=== PATIENT | female | born 1975 | race Caucasian/White ===

== ENCOUNTER 2017-07-22 15:01 | Emergency (ER) | payer MEDICAID ==
[~2017-07-22] VITALS: Ht 165.1 cm; Wt 71.7 kg
[2017-07-22 15:05] VITALS: BP_SYST 106
[2017-07-22] MEDS ORDERED: KETOROLAC TROMETHAMINE 60 MG/2 ML VIAL IM ONE (15:30)
[2017-07-22] MEDS ORDERED: HYDROcodone/ACETAMIN 7.5-325 MG TAB PO ONE (15:30)
[2017-07-22 15:33] LABS: BILIRUBIN,URINE NEGATIVE (NEGATIVE); BLOOD, URINE 3+ (NEGATIVE); CLARITY/URINE CLEAR (CLEAR); COLOR,URINE YELLOW (YELLOW); GLUCOSE,URINE NEGATIVE (NEGATIVE); KETONES,URINE NEGATIVE (NEGATIVE); LEUKOCYTE ESTERASE ,URINE NEGATIVE (NEGATIVE); NITRITE, URINE NEGATIVE (NEGATIVE); PROTEIN URINE NEGATIVE (NEGATIVE); UROBILINOGEN,URINE 0.2 (0.2-1.0)
[2017-07-22 15:48] LABS: BACTERIA,URINE FEW /HPF (None Seen); MUCUS,URINE 1+ /LPF (None Seen); WBC,URINE 0-3 /HPF (0-3)
[2017-07-22 17:55] VITALS: BP_SYST 110
== END 2017-07-22 17:55 | disposition home or self-care (01) ==
LOC: SED 15:01
DX: S39.012A Strain of muscle, fascia and tendon of lower back, initial encounter (principal); S16.1XXA Strain of muscle, fascia and tendon at neck level, initial encounter; R03.0 Elevated blood-pressure reading, without diagnosis of hypertension; W07.XXXA Fall from chair, initial encounter; Y93.89 Activity, other specified; Y92.89 Other specified places as the place of occurrence of the external cause; Y99.8 Other external cause status
CPT/HCPCS: 72125; 72131; 81000; 81025; 96372; 99285; J1885

== ENCOUNTER 2017-12-08 22:20 | Emergency (ER) | payer MEDICAID ==
[~2017-12-08] VITALS: Ht 162.6 cm; Wt 72.6 kg
[2017-12-08 22:25] VITALS: BP_SYST 97
[2017-12-08 23:15] LABS: BILIRUBIN,URINE NEGATIVE (NEGATIVE); BLOOD, URINE 3+ (NEGATIVE); CLARITY/URINE HAZY (CLEAR); COLOR,URINE YELLOW (YELLOW); GLUCOSE,URINE NEGATIVE (NEGATIVE); KETONES,URINE NEGATIVE (NEGATIVE); LEUKOCYTE ESTERASE ,URINE 1+ (NEGATIVE); NITRITE, URINE POSITIVE (NEGATIVE); PROTEIN URINE 2+ (NEGATIVE); UROBILINOGEN,URINE 0.2 (0.2-1.0)
[2017-12-08 23:23] LABS: BASOPHILS % (AUTO) 0.6 % (0.0-2.0); EOSINOPHILS # (AUTO) 0.1 K/uL (0.0-0.4); EOSINOPHILS % (AUTO) 1.3 % (0.0-4.0); HEMATOCRIT 32.4 % (36-48); HEMOGLOBIN 10.9 g/dL (12.0-16.0); LYMPHOCYTES # (AUTO) 1.6 K/uL (1.0-5.5); LYMPHOCYTES % (AUTO) 20.2 % (20.5-51.5); MEAN CORPUSCULAR HEMOGLOBIN 30 pg (27-31); MEAN CORPUSCULAR HGB CONC 34 % (32-36); MEAN CORPUSCULAR VOLUME 87 fL (79.0-98.0); MONOCYTES # (AUTO) 0.6 K/uL (0.0-1.0); MONOCYTES % (AUTO) 7.5 % (1.7-9.3); NEUTROPHILS # (AUTO) 5.8 K/uL (1.8-7.7); NEUTROPHILS % (AUTO) 70.4 % (40.0-70.0); PLATELET COUNT (AUTO) 256 K/uL (130-430); RED BLOOD CELL COUNT(AUTO) 3.71 MIL/uL (4.2-6.2); RED CELL DISTRIBUTION WIDTH 13.4 % (9.0-15.0); WHITE BLOOD COUNT (AUTO) 8.1 K/uL (4.8-10.8)
[2017-12-08 23:32] LABS: CALCIUM 8.2 mg/dL (8.4-11.0); CREATININE 0.76 mg/dL (0.55-1.30); POTASSIUM 3.4 mmol/L (3.5-5.1)
[2017-12-08 23:37] LABS: ALBUMIN 3.2 g/dL (3.4-4.8); TOTAL BILIRUBIN 0.2 mg/dL (0.0-1.0)
[2017-12-08 23:45] LABS: BACTERIA,URINE MANY /HPF (None Seen); MUCUS,URINE 1+ /LPF (None Seen); RBC,URINE 20-50 /HPF (0-3)
[2017-12-09 00:30] VITALS: BP_SYST 120
== END 2017-12-09 00:30 | disposition home or self-care (01) ==
LOC: SED 22:20
DX: N39.0 Urinary tract infection, site not specified (principal)
CPT/HCPCS: 36415; 76830-TC; 76857; 80053; 81000-TC; 85025; 87086; 87186-TC; 99285

== ENCOUNTER 2018-02-15 10:13 | Outpatient (CLI) | payer MEDICAID | END 2018-02-15 21:13 | disposition home or self-care (01) | LOC: SMA 10:13 | DX: Z12.31 Encounter for screening mammogram for malignant neoplasm of breast (principal) | CPT/HCPCS: 77067 ==

== ENCOUNTER 2018-02-22 20:35 | Emergency (ER) | payer MEDICAID ==
[~2018-02-22] VITALS: Ht 172.7 cm; Wt 71.7 kg
--- NOTE | 2018-02-22 20:40 | NUR ---
Patient to ER bed 6 to gown for evaluation. Side rails up. Report given to Pili KHANNA.
[2018-02-22 20:42] VITALS: BP_SYST 113
--- NOTE | 2018-02-22 20:42 | NUR ---
ED MD [place] at bedside for medical evaluation.
[2018-02-22] MEDS ORDERED: FIORCET PO ONE (20:45)
--- NOTE | 2018-02-22 20:50 | NUR ---
Patient complaining of headache, sinus pressure and jaw pain since Monday. Denies any N/V/D, light sensitivity, blurred vision or dizziness. Pain 7/10, pressure. No other complaints/injuries per patient or as noted. Will continue to monitor.
[2018-02-22 21:15] VITALS: BP_SYST 113
--- NOTE | 2018-02-22 21:15 | NUR ---
Patient given written and verbal discharge instructions and verbalizes understanding. ER MD discussed with patient the results and treatment provided. Patient in stable condition. ID arm band removed. IV catheter removed intact and dressing applied, no active bleeding. Rx of Fioricet and Zyrtec given. Patient educated on pain management and to follow up with PMD in 2-3 days. Pain Scale 2/10 Opportunity for questions provided and answered. Medication side effect fact sheet provided.
== END 2018-02-22 21:15 | disposition home or self-care (01) ==
LOC: SED 20:35
DX: R51 Headache (principal)
CPT/HCPCS: 81025; 99283

== ENCOUNTER 2018-07-04 16:06 | Emergency (ER) | payer MEDICAID ==
[~2018-07-04] VITALS: Ht 167.6 cm; Wt 72.6 kg
[2018-07-04 16:06] VITALS: BP_SYST 134
[2018-07-04] MEDS ORDERED: KETOROLAC TROMETHAMINE 60 MG/2 ML VIAL IM ONE (16:45)
[2018-07-04 17:17] LABS: HEMATOCRIT 32.2 % (36-48); HEMOGLOBIN 10.6 g/dL (12.0-16.0); MEAN CORPUSCULAR HEMOGLOBIN 27 pg (27-31); MEAN CORPUSCULAR HGB CONC 33 % (32-36); MEAN CORPUSCULAR VOLUME 83 fL (79.0-98.0); PLATELET COUNT (AUTO) 281 K/uL (130-430); RED BLOOD CELL COUNT(AUTO) 3.88 MIL/uL (4.2-6.2); RED CELL DISTRIBUTION WIDTH 13.7 % (9.0-15.0); WHITE BLOOD COUNT (AUTO) 7.2 K/uL (4.8-10.8)
[2018-07-04 17:18] LABS: BASOPHILS % (AUTO) 0.5 % (0.0-2.0); EOSINOPHILS # (AUTO) 0.1 K/uL (0.0-0.4); LYMPHOCYTES # (AUTO) 1.8 K/uL (1.0-5.5); LYMPHOCYTES % (AUTO) 24.8 % (20.5-51.5); MONOCYTES # (AUTO) 0.5 K/uL (0.0-1.0); MONOCYTES % (AUTO) 7.2 % (1.7-9.3); NEUTROPHILS # (AUTO) 4.8 K/uL (1.8-7.7); NEUTROPHILS % (AUTO) 66.5 % (40.0-70.0)
[2018-07-04 17:21] LABS: POTASSIUM 4.2 mmol/L (3.5-5.1)
[2018-07-04 17:23] LABS: ALBUMIN 3.5 g/dL (3.4-4.8); CREATININE 0.7 mg/dL (0.55-1.30); TOTAL BILIRUBIN 0.1 mg/dL (0.0-1.0)
[2018-07-04 18:10] VITALS: BP_SYST 101
== END 2018-07-04 18:10 | disposition home or self-care (01) ==
LOC: SED 16:06
DX: S16.1XXA Strain of muscle, fascia and tendon at neck level, initial encounter (principal); S46.912A Strain of unspecified muscle, fascia and tendon at shoulder and upper arm level, left arm, initial encounter; R51 Headache; R03.0 Elevated blood-pressure reading, without diagnosis of hypertension; K21.9 Gastro-esophageal reflux disease without esophagitis; X58.XXXA Exposure to other specified factors, initial encounter; Y93.89 Activity, other specified; Y92.89 Other specified places as the place of occurrence of the external cause; Y99.8 Other external cause status
CPT/HCPCS: 36415; 70450; 80053; 81025; 85025; 96372; 99284; J1885

== ENCOUNTER 2019-03-30 11:24 | Emergency (ER) | payer MEDICAID ==
[~2019-03-30] VITALS: Ht 172.7 cm; Wt 68.0 kg
[2019-03-30 11:32] VITALS: BP_SYST 100
[2019-03-30] MEDS ORDERED: ONDANSETRON HCL 4 MG/2 ML VIAL IVP ONE (12:00)
[2019-03-30] MEDS ORDERED: KETOROLAC TROMETHAMINE 30 MG VIAL IVP ONE (12:00)
[2019-03-30] MEDS ORDERED: NACL 0.9% 1,000 ML IV ONE (12:00)
[2019-03-30 12:21] LABS: BASOPHILS % (AUTO) 0.3 % (0.0-2.0); EOSINOPHILS % (AUTO) 0.4 % (0.0-4.0); HEMOGLOBIN 10.1 g/dL (12.0-16.0); LYMPHOCYTES # (AUTO) 0.4 K/uL (1.0-5.5); LYMPHOCYTES % (AUTO) 4.9 % (20.5-51.5); MEAN CORPUSCULAR HEMOGLOBIN 25 pg (27-31); MEAN CORPUSCULAR HGB CONC 33 % (32-36); MEAN CORPUSCULAR VOLUME 77 fL (79.0-98.0); MONOCYTES # (AUTO) 0.3 K/uL (0.0-1.0); MONOCYTES % (AUTO) 3.7 % (1.7-9.3); NEUTROPHILS # (AUTO) 8.2 K/uL (1.8-7.7); NEUTROPHILS % (AUTO) 90.7 % (40.0-70.0); PLATELET COUNT (AUTO) 202 K/uL (130-430); RED BLOOD CELL COUNT(AUTO) 4.01 MIL/uL (4.2-6.2); RED CELL DISTRIBUTION WIDTH 15.4 % (9.0-15.0)
[2019-03-30 12:35] LABS: CALCIUM 8.2 mg/dL (8.4-11.0); CREATININE 0.69 mg/dL (0.55-1.30); POTASSIUM 3.8 mmol/L (3.5-5.1)
[2019-03-30 12:41] LABS: ALBUMIN 3.1 g/dL (3.4-4.8); TOTAL BILIRUBIN 0.5 mg/dL (0.0-1.0)
[2019-03-30 13:21] VITALS: BP_SYST 16
== END 2019-03-30 13:21 | disposition home or self-care (01) ==
LOC: SED 11:24
DX: T62.8X1A Toxic effect of other specified noxious substances eaten as food, accidental (unintentional), initial encounter (principal); R11.2 Nausea with vomiting, unspecified; K21.9 Gastro-esophageal reflux disease without esophagitis; Y92.89 Other specified places as the place of occurrence of the external cause
CPT/HCPCS: 36415; 80053; 81025; 83690; 85025; 96361; 96374; 96375; 99283; J1885; J2405; J7030

== ENCOUNTER 2019-05-09 07:02 | Emergency (ER) | payer MEDICAID ==
[~2019-05-09] VITALS: Ht 165.1 cm; Wt 68.0 kg
[2019-05-09 07:05] VITALS: BP_SYST 86
--- NOTE | 2019-05-09 07:05 | NUR ---
BROUGHT BACK TO BED #7 AND TRIAGED. REPORT GIVEN TO SIGIFREDO
--- NOTE | 2019-05-09 07:18 | NUR ---
pt arrives from home w/ c/o VILLALOBOS and back pain 03/05. Pt is currently afebrile. No other c/o at the moment. Will continue to monitor.
--- NOTE | 2019-05-09 07:25 | NUR ---
# 22 gauge angiocath placed to left hand. Use of asceptic technique. Opsite placed over site. Blood return noted. Blood for lab drawn from site. Flushed with 10 cc of normal saline. No evidence of infiltration noted. Patient tolerated well.
--- NOTE | 2019-05-09 07:32 | NUR ---
ER at bedside examining patient.
[2019-05-09] MEDS ORDERED: PROCHLORPERAZINE EDISYLATE 10 MG/2 ML VIAL IVP ONE (08:00)
[2019-05-09] MEDS ORDERED: KETOROLAC TROMETHAMINE 30 MG VIAL IVP ONE (08:00)
--- NOTE | 2019-05-09 08:05 | NUR ---
Meicated the pt w/ Toradol and Compazine per MD order. Will reassess.
[2019-05-09 08:11] LABS: BASOPHILS % (AUTO) 0.5 % (0.0-2.0); EOSINOPHILS % (AUTO) 0.1 % (0.0-4.0); HEMATOCRIT 32.8 % (36-48); HEMOGLOBIN 10.8 g/dL (12.0-16.0); LYMPHOCYTES # (AUTO) 0.3 K/uL (1.0-5.5); LYMPHOCYTES % (AUTO) 3.7 % (20.5-51.5); MEAN CORPUSCULAR HEMOGLOBIN 25 pg (27-31); MEAN CORPUSCULAR HGB CONC 33 % (32-36); MEAN CORPUSCULAR VOLUME 76 fL (79.0-98.0); MONOCYTES # (AUTO) 0.5 K/uL (0.0-1.0); MONOCYTES % (AUTO) 8.1 % (1.7-9.3); NEUTROPHILS # (AUTO) 5.9 K/uL (1.8-7.7); NEUTROPHILS % (AUTO) 87.6 % (40.0-70.0); PLATELET COUNT (AUTO) 206 K/uL (130-430); RED BLOOD CELL COUNT(AUTO) 4.31 MIL/uL (4.2-6.2); RED CELL DISTRIBUTION WIDTH 16.8 % (9.0-15.0); WHITE BLOOD COUNT (AUTO) 6.7 K/uL (4.8-10.8)
[2019-05-09 08:43] LABS: CALCIUM 8.5 mg/dL (8.4-11.0); CREATININE 0.92 mg/dL (0.55-1.30); POTASSIUM 3.9 mmol/L (3.5-5.1)
[2019-05-09 08:49] LABS: TOTAL BILIRUBIN 0.2 mg/dL (0.0-1.0)
--- NOTE | 2019-05-09 08:53 | NUR ---
pt reports feeling better. Will reassess.
[2019-05-09 09:22] VITALS: BP_SYST 86
--- NOTE | 2019-05-09 09:23 | NUR ---
Patient given written and verbal discharge instructions and verbalizes understanding. ER MD discussed with patient the results and treatment provided. Patient in stable condition. ID arm band removed. IV catheter removed intact and dressing applied, no active bleeding.Rx of Naproxen and Klonopin given. Patient educated on pain management and to follow up with PMD. Pain Scale 3/10.Opportunity for questions provided and answered. Medication side effect fact sheet provided.
== END 2019-05-09 09:23 | disposition home or self-care (01) ==
LOC: SED 07:02
DX: G44.209 Tension-type headache, unspecified, not intractable (principal); K21.9 Gastro-esophageal reflux disease without esophagitis
CPT/HCPCS: 36415; 80053; 85025; 96374; 96375; 99283; J0780; J1885

== ENCOUNTER 2020-11-08 08:44 | Emergency (ER) | payer MEDICAID ==
[~2020-11-08] VITALS: Ht 165.1 cm; Wt 76.7 kg
[2020-11-08 09:02] VITALS: BP_SYST 118
[2020-11-08] MEDS ORDERED: HYDROcodone/ACETAMIN 10-325 MG TAB PO ONE (09:30)
[2020-11-08] MEDS ORDERED: KETOROLAC TROMETHAMINE 60 MG/2 ML VIAL IM ONE (09:30)
[2020-11-08] MEDS ORDERED: TRAM50TA2 PO (10:28)
[2020-11-08 10:41] VITALS: BP_SYST 121
== END 2020-11-08 10:41 | disposition home or self-care (01) ==
LOC: SED 08:44
DX: G89.29 Other chronic pain (principal); M25.512 Pain in left shoulder; K21.9 Gastro-esophageal reflux disease without esophagitis
CPT/HCPCS: 73030; 96372; 99283; J1885

== ENCOUNTER 2021-05-05 16:36 | Emergency (ER) | payer MEDICAID ==
[~2021-05-05] VITALS: Ht 167.6 cm; Wt 72.6 kg
[2021-05-05 16:36] VITALS: BP_SYST 114
[~2021-05-05 16:36] MED LIST: TRAM50TA2 PO
[2021-05-05] MEDS ORDERED: KETOROLAC TROMETHAMINE 60 MG/2 ML VIAL IM ONE (17:00)
[2021-05-05] MEDS ORDERED: HYDROcodone/ACETAMIN 10-325 MG TAB PO ONE (17:00)
[2021-05-05] MEDS ORDERED: IBUP-1969 PO (17:37)
[2021-05-05] MEDS ORDERED: HYDR-3917 PO (17:37)
[2021-05-05 17:55] VITALS: BP_SYST 101
== END 2021-05-05 17:55 | disposition home or self-care (01) ==
LOC: SED 16:36
DX: M47.812 Spondylosis without myelopathy or radiculopathy, cervical region (principal); K21.9 Gastro-esophageal reflux disease without esophagitis; Z79.899 Other long term (current) drug therapy
CPT/HCPCS: 96372; 99283; J1885

== ENCOUNTER 2022-05-11 15:14 | Emergency (ER) | payer MEDICAID ==
[~2022-05-11] VITALS: Ht 167.6 cm; Wt 69.9 kg
[~2022-05-11 15:14] MED LIST changes: +HYDR-3917 PO; +IBUP-1969 PO
[2022-05-11 15:20] VITALS: BP_SYST 96
--- NOTE | 2022-05-11 15:22 | NUR ---
Patient triaged and placed in waiting room. VSS and patient appears in no acute distress at this time. Accompanied by SELF, awaiting available bed, and MD notified of need for MSE.
--- NOTE | 2022-05-11 15:24 | NUR ---
Pt brought by self, A&Ox4, pt presents to ER with bodyaches and neck pain, denies trauma, skin pink and warm, cap refill <3, VSS
--- NOTE | 2022-05-11 18:15 | NUR ---
DR SALDAÑA OUT TO TRIAGE ROOM FOR EVALUATION
[2022-05-11] MEDS ORDERED: LIDOCAINE PATCH 5% 1 EA TP ONE (18:30)
[2022-05-11] MEDS ORDERED: KETOROLAC TROMETHAMINE 15 MG VIAL IM ONE (18:30)
[2022-05-11] MEDS ORDERED: IBUP-1969 PO (19:14)
[2022-05-11] MEDS ORDERED: LIDO1ADH71 TP (19:14)
--- NOTE | 2022-05-11 19:39 | NUR ---
Patient given written and verbal discharge instructions and verbalizes understanding. ER MD discussed with patient the results and treatment provided. Patient in stable condition. ID arm band removed. IV catheter removed intact and dressing applied, no active bleeding. Rx of IBUPROFEN ADN LIDOCAINE given. Patient educated on pain management and to follow up with PMD. Pain Scale 1. Opportunity for questions provided and answered. Medication side effect fact sheet provided.
[2022-05-11 19:40] VITALS: BP_SYST 115
== END 2022-05-11 19:39 | disposition home or self-care (01) ==
LOC: SED 15:14
DX: S29.012A Strain of muscle and tendon of back wall of thorax, initial encounter (principal); K21.9 Gastro-esophageal reflux disease without esophagitis; Z79.899 Other long term (current) drug therapy; X58.XXXA Exposure to other specified factors, initial encounter; Y93.89 Activity, other specified; Y92.89 Other specified places as the place of occurrence of the external cause; Y99.8 Other external cause status
CPT/HCPCS: 99283; 96372; J1885

== ENCOUNTER 2023-01-06 06:42 | Emergency (ER) | payer MEDICAID ==
[~2023-01-06] VITALS: Ht 167.6 cm; Wt 69.4 kg
[~2023-01-06 06:42] MED LIST changes: +LIDO1ADH71 TP
--- NOTE | 2023-01-06 06:56 | NUR ---
patient presents with nausea and diarrhea that began at 2 am today, complaints 9/10 abd pain
[2023-01-06 06:59] VITALS: BP_SYST 95; PULSE 87; RESP 21; TEMP 97.8; O2SAT 99
--- NOTE | 2023-01-06 06:59 | NUR ---
patient placed in ED bed 7
--- NOTE | 2023-01-06 07:05 | NUR ---
pt bib c/o abominal pain and diarrhea. pt states she woke up this morning at 02:00 AM and has been having diarrhea and nausea since she woke up. pt denies any medical hx. pt eyes open spomtaneously. pt is alert and oriented to person, place, time, and time. pt obeys commands. pt is in room 7 on the monitor with at bedside.
--- NOTE | 2023-01-06 07:10 | NUR ---
report given to kylie ellison with opp for question provided.
[2023-01-06] MEDS ORDERED: ONDANSETRON 4 MG ODT TAB PO ONE (07:45)
--- NOTE | 2023-01-06 08:00 | NUR ---
Patient BIB c/o diarrhea since this AM 0200. States she went to dinner last night and became sick early this AM. Became nauseous and began vomiting in the ED. Has had 2 episodes & was given Zofran. C/O abdominal cramping.
[2023-01-06 08:15] LABS: BASOPHILS % (AUTO) 0.2 % (0.0-2.0); EOSINOPHILS % (AUTO) 0.2 % (0.0-4.0); HEMOGLOBIN 10.7 g/dL (12.0-16.0); LYMPHOCYTES # (AUTO) 0.6 K/uL (1.0-5.5); LYMPHOCYTES % (AUTO) 4.7 % (20.5-51.5); MEAN CORPUSCULAR HEMOGLOBIN 26 pg (27-31); MEAN CORPUSCULAR HGB CONC 32 % (32-36); MEAN CORPUSCULAR VOLUME 83 fL (79.0-98.0); MONOCYTES # (AUTO) 0.5 K/uL (0.0-1.0); MONOCYTES % (AUTO) 3.9 % (1.7-9.3); NEUTROPHILS # (AUTO) 11.1 K/uL (1.8-7.7); PLATELET COUNT (AUTO) 230 K/uL (130-430); RED BLOOD CELL COUNT(AUTO) 4.12 MIL/uL (4.2-6.2); RED CELL DISTRIBUTION WIDTH 15.5 % (9.0-15.0); WHITE BLOOD COUNT (AUTO) 12.2 K/uL (4.8-10.8)
[2023-01-06 08:27] LABS: ACETONE, SERUM NEGATIVE (NEGATIVE)
[2023-01-06 08:29] LABS: ANION GAP 9 (5-15); CALCIUM 7.9 mg/dL (8.4-11.0); CHLORIDE 104 mmol/L (98-107); CREATININE 0.64 mg/dL (0.55-1.30); GFR AFRICAN AMERICAN 127 mL/min (>90); GLUCOSE 106 mg/dL (74-106); UREA NITROGEN, BLOOD 15 mg/dL (8-21)
--- NOTE | 2023-01-06 08:30 | NUR ---
Urine sample collected and taken to lab. HCG negative.
[2023-01-06 08:35] LABS: ALANINE AMINOTRANSFERASE 9 U/L (12-78); AMYLASE 55 U/L (0-100); ASPARTATE AMINOTRANSFERASE 10 U/L (10-37); LIPASE 40 U/L (73-393); TOTAL BILIRUBIN 0.3 mg/dL (0.0-1.0)
--- NOTE | 2023-01-06 08:45 | NUR ---
Patient to radiology.
[2023-01-06 09:07] LABS: BILIRUBIN,URINE NEGATIVE (NEGATIVE); BLOOD, URINE 2+ (NEGATIVE); CLARITY/URINE CLEAR (CLEAR); COLOR,URINE YELLOW (YELLOW); GLUCOSE,URINE NEGATIVE (NEGATIVE); KETONES,URINE NEGATIVE (NEGATIVE); LEUKOCYTE ESTERASE ,URINE NEGATIVE (NEGATIVE); NITRITE, URINE NEGATIVE (NEGATIVE); PROTEIN URINE 1+ (NEGATIVE); UROBILINOGEN,URINE 0.2 (0.2-1.0)
[2023-01-06 09:31] LABS: BACTERIA,URINE None Seen /HPF (None Seen); WBC,URINE 0-3 /HPF (0-3)
[2023-01-06] MEDS ORDERED: ONDA-8 TL (09:57)
[2023-01-06] MEDS ORDERED: OMEP20CA15 PO (09:57)
--- NOTE | 2023-01-06 10:30 | NUR ---
Patient given written and verbal discharge instructions and verbalizes understanding. ER MD SOLIZ discussed with patient the results and treatment provided. Patient in stable condition. ID arm band removed. Rx of OMEPRAZOLE, ZOFRAN given. Patient educated on pain management and to follow up with PMD. Pain Scale 1/10. Opportunity for questions provided and answered. Medication side effect fact sheet provided.
[2023-01-06 10:35] VITALS: BP_SYST 114; PULSE 83; RESP 16; TEMP 97.4; O2SAT 97
== END 2023-01-06 10:30 | disposition home or self-care (01) ==
LOC: SED 06:42
DX: R10.13 Epigastric pain (principal); R11.2 Nausea with vomiting, unspecified; K21.9 Gastro-esophageal reflux disease without esophagitis; Z79.899 Other long term (current) drug therapy
CPT/HCPCS: 99284; 74176; 80053; 81000; 82009; 82150; 84703; 83690; 85025; 84484; 36415; 76376; 83605; Q0162

== ENCOUNTER 2023-09-28 12:23 | Emergency (ER) | payer MEDICAID ==
[~2023-09-28] VITALS: Ht 160 cm; Wt 64.0 kg
[~2023-09-28 12:23] MED LIST changes: +OMEP20CA15 PO; +ONDA-8 TL
[2023-09-28 12:59] VITALS: BP_SYST 92; PULSE 112; RESP 18; TEMP 98.9; O2SAT 99
[2023-09-28 13:43] LABS: BASOPHILS % (AUTO) 0.3 % (0.0-2.0); EOSINOPHILS % (AUTO) 0.2 % (0.0-4.0); HEMATOCRIT 25.2 % (36-48); HEMOGLOBIN 8.2 g/dL (12.0-16.0); LYMPHOCYTES # (AUTO) 0.4 K/uL (1.0-5.5); LYMPHOCYTES % (AUTO) 4.1 % (20.5-51.5); MEAN CORPUSCULAR HEMOGLOBIN 25 pg (27-31); MEAN CORPUSCULAR HGB CONC 33 % (32-36); MEAN CORPUSCULAR VOLUME 78 fL (79.0-98.0); MONOCYTES # (AUTO) 0.6 K/uL (0.0-1.0); MONOCYTES % (AUTO) 5.5 % (1.7-9.3); NEUTROPHILS # (AUTO) 9.3 K/uL (1.8-7.7); NEUTROPHILS % (AUTO) 89.9 % (40.0-70.0); PLATELET COUNT (AUTO) 480 K/uL (130-430); RED BLOOD CELL COUNT(AUTO) 3.25 MIL/uL (4.2-6.2); RED CELL DISTRIBUTION WIDTH 16.4 % (9.0-15.0); WHITE BLOOD COUNT (AUTO) 10.4 K/uL (4.8-10.8)
[2023-09-28 14:00] LABS: PROTHROMBIN TIME 10.3 SECS (9.5-12.5)
[2023-09-28 14:03] LABS: CALCIUM 8.8 mg/dL (8.4-11.0); CREATININE 0.91 mg/dL (0.55-1.30); POTASSIUM 4.6 mmol/L (3.5-5.1)
[2023-09-28 15:41] LABS: ALANINE AMINOTRANSFERASE 8 U/L (12-78); ALBUMIN 3.1 g/dL (3.4-4.8); ASPARTATE AMINOTRANSFERASE 10 U/L (10-37); BILIRUBIN,DIRECT 0.1 mg/dL (0.0-0.3); TOTAL BILIRUBIN 0.4 mg/dL (0.0-1.0); TOTAL PROTEIN, SERUM 7.4 g/dL (6.4-8.3)
[2023-09-28] MEDS: MAG HYDROX/AL HYDROX/SIMETH 30 ML, DICYCLOMINE HCL 20 MG, LIDOCAINE VISCOUS 2% 15ML (PO... PO ONE (15:51)
[2023-09-28] MEDS: ONDANSETRON HCL 4 MG/2 ML VIAL IVP ONE (15:51)
[2023-09-28] MEDS: NACL 0.9% 1,000 ML IV ONE ×2 (15:51→17:43)
[2023-09-28 18:15] LABS: BILIRUBIN,URINE 1+ (NEGATIVE); BLOOD, URINE 2+ (NEGATIVE); COLOR,URINE YELLOW (YELLOW); GLUCOSE,URINE NEGATIVE (NEGATIVE); KETONES,URINE 1+ (NEGATIVE); LEUKOCYTE ESTERASE ,URINE NEGATIVE (NEGATIVE); NITRITE, URINE NEGATIVE (NEGATIVE); PH,URINE 6.5 (5.0-8.0); PROTEIN URINE 1+ (NEGATIVE)
[2023-09-28 18:20] LABS: CLARITY/URINE HAZY (CLEAR)
[2023-09-28 18:44] LABS: BACTERIA,URINE MODERATE /HPF (None Seen)
[2023-09-28 18:45] LABS: MUCUS,URINE 3+ /LPF (None Seen)
[2023-09-28 19:50] VITALS: BP_SYST 92; PULSE 74; RESP 16; TEMP 98.2; O2SAT 99
== END 2023-09-28 19:44 | disposition home or self-care (01) ==
LOC: SED 12:23
DX: R53.1 Weakness (principal); E86.0 Dehydration; D64.9 Anemia, unspecified; R07.9 Chest pain, unspecified; R51.9 Headache, unspecified; R06.02 Shortness of breath; K21.9 Gastro-esophageal reflux disease without esophagitis; Z79.899 Other long term (current) drug therapy
CPT/HCPCS: 99285; 86870; 96374; 71045; 96361; 80076; 80048; 81001; 85025; 85610; 85730; 86886; 86900; 86901; 87040; 87086; 84484; 36415; 93005; 81025; 83605; 81000; 81015; J2405; J7030; J2001